=== PATIENT | female | born 1990 | race Caucasian/White ===

== ENCOUNTER 2024-04-09 11:46 | Outpatient (CLI) | payer OTHER | END 2024-04-09 11:51 | disposition home or self-care (01) | LOC: PRENATAL 11:46 | PROVIDERS: ATTEND Obstetrics & Gynecology Maternal & Fetal Medicine | DX: O36.80X0 Pregnancy with inconclusive fetal viability, not applicable or unspecified (principal); Z36.82 Encounter for antenatal screening for nuchal translucency; Z14.8 Genetic carrier of other disease; Z3A.12 12 weeks gestation of pregnancy ==

== ENCOUNTER 2024-04-19 10:46 | Emergency (ER) | payer OTHER ==
[~2024-04-19] VITALS: Ht 160 cm; Wt 59.0 kg
[2024-04-19] MEDS ORDERED: 0.9 % SODIUM CHLORIDE 1,000 ML IV STA (12:26)
[2024-04-19] MEDS ORDERED: ONDANSETRON HCL 2 MG/ML VIAL IV STA (12:27)
[2024-04-19 13:24] LABS: HEMATOCRIT 37.7 % (36.0-45.00); HEMOGLOBIN 12.8 g/dL (12.0-15.00); MEAN CELL VOLUME 89.8 fL (80.00-100.00); MEAN CORPUSCULAR HEMOGLOBIN 30.4 pg (27.00-32.0); MEAN CORPUSCULAR HGB CONC 33.9 g/dl (32.0-36.0); PLATELET COUNT 273 K/uL (150-450); RED CELL DISTRIBUTION WIDTH 13.3 % (11.5-14.5)
[2024-04-19 13:31] LABS: PH,URINE 6.5 (5.0-8.0); URINE APPEARANCE Turbid; URINE BILIRRUBIN Negative (NEGATIVE); URINE BLOOD Negative; URINE COLOR Yellow; URINE GLUCOSE Negative (NEGATIVE); URINE KETONE Negative (NEGATIVE); URINE LEUKOCYTE Small; URINE NITRATE Negative; URINE PROTEIN Negative (NEGATIVE)
[2024-04-19 13:41] LABS: URINE BACTERIA 4777.2 uL (0.0-1933); URINE RBC 6.6 uL (0.0-20.8)
[2024-04-19 13:57] LABS: URINE CAST 0.58 uL (0.0-1.40); URINE CRYSTALS FEW /HPF
[2024-04-19 15:05] LABS: CALCIUM 9.1 mg/dL (8.5-10.1); CREATININE SERUM 0.69 mg/dL (0.55-1.02); GFR 98.59; POTASSIUM 4.38 mEq/L (3.5-5.1)
[2024-04-19 15:33] LABS: AMYLASE 72 U/L (25-115); LIPASE 48 U/L (13-75)
[2024-04-19 15:56] LABS: HCG QUANTITATIVE 78964 mUI/mL (1-3)
== END 2024-04-19 16:50 | disposition home or self-care (01) ==
LOC: ER 10:49
PROVIDERS: Emergency Medicine
DX: Z33.1 Pregnant state, incidental (principal); K52.89 Other specified noninfective gastroenteritis and colitis; R11.10 Vomiting, unspecified; Z3A.13 13 weeks gestation of pregnancy; Z88.0 Allergy status to penicillin

== ENCOUNTER 2024-06-04 13:22 | Outpatient (CLI) | payer OTHER | END 2024-06-04 13:23 | disposition home or self-care (01) | LOC: PRENATAL 13:22 | PROVIDERS: ATTEND Obstetrics & Gynecology Maternal & Fetal Medicine | DX: O44.00 Complete placenta previa NOS or without hemorrhage, unspecified trimester (principal); Z3A.20 20 weeks gestation of pregnancy ==

== ENCOUNTER 2024-08-27 09:24 | Outpatient (CLI) | payer OTHER | END 2024-08-27 09:25 | disposition home or self-care (01) | LOC: PRENATAL 09:24 | DX: O26.849 Uterine size-date discrepancy, unspecified trimester (principal); O36.8199 Decreased fetal movements, unspecified trimester, other fetus; Z3A.33 33 weeks gestation of pregnancy ==